=== PATIENT | female | born 2000 | race Caucasian/White ===

== ENCOUNTER 2021-08-29 08:06 | Outpatient (CLI) | payer BC | END 2021-08-29 08:07 | disposition home or self-care (01) | LOC: CSHWCC 08:06 | PROVIDERS: ATTEND Nurse Practitioner Family | DX: T81.89XS Other complications of procedures, not elsewhere classified, sequela (principal); L05.91 Pilonidal cyst without abscess; G89.11 Acute pain due to trauma | CPT/HCPCS: 99212; G0463 ==

== ENCOUNTER 2021-09-19 09:59 | Outpatient (CLI) | payer BC | END 2021-09-19 10:00 | disposition home or self-care (01) | LOC: CSHWCC 09:59 | PROVIDERS: ATTEND Nurse Practitioner Family | DX: T81.89XD Other complications of procedures, not elsewhere classified, subsequent encounter (principal); G89.11 Acute pain due to trauma; L05.91 Pilonidal cyst without abscess | CPT/HCPCS: 99212; G0463 ==

== ENCOUNTER 2022-03-07 12:45 | Outpatient (CLI) | payer BC | END 2022-03-07 12:46 | disposition home or self-care (01) | LOC: CSHWCC 12:45 | PROVIDERS: ATTEND Nurse Practitioner Family | DX: L05.91 Pilonidal cyst without abscess (principal) | CPT/HCPCS: 99212; G0463 ==